=== PATIENT | female | born 2000 | race Caucasian/White ===

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

== ENCOUNTER 2022-02-14 18:58 | Inpatient (IN) ==
[2022-02-14] MEDS ORDERED: OXYTOCIN 30 UNITS/500 ML BAG IV PRN (19:45)
[2022-02-14] MEDS ORDERED: LIDOCAINE 1% LOCAL 20 ML VIAL INFIL PRN (19:45)
[2022-02-14] MEDS: LACTATED RINGER'S 1,000 ML IV PRN ×2 (19:59→23:22)
[2022-02-14 20:11] LABS: Hematocrit (blood only) 31.7 % (34.1-44.9); Mean Corpuscular Hemoglobin 24.1 pg (25.0-34.0); Mean Corpuscular Hgb Conc 31.5 g/dL (32.0-36.0); Mean Corpuscular Volume 76.4 fL (80.0-100.0); Platelet Count 184 K/uL (130-400); RDW Coefficient of Variation 15.7 % (11.5-14.5); RDW Standard Deviation 42.4 fL (36.4-46.3); Red Blood Count 4.15 M/uL (3.93-5.22); White Blood Count 10.08 K/ul (4.8-10.8)
[2022-02-14] MEDS ORDERED: ePHEDrine sulfate 50 MG/ML AMP IV PRN (20:11)
[2022-02-14] MEDS ORDERED: fentaNYL 2MCG/ML ROPIVACAINE 1.25MG/ML 100 ML BAG EPI PRN (20:11)
[2022-02-14] MEDS ORDERED: NALOXONE HCL 0.4 MG/1 ML VIAL/CARP IV PRN (20:11)
[2022-02-14] MEDS ORDERED: NALBUPHINE HCL INJ 10 MG/ML AMP IV PRN (20:11)
[2022-02-14] MEDS ORDERED: NALOXONE HCL 1 MG in SODIUM CHLORIDE 0.9% 1000ML 1,000 ML IV PRN (20:11)
[2022-02-14] MEDS ORDERED: ePHEDrine sulfate 50 MG/ML AMP ONE (20:11)
[2022-02-14] MEDS ORDERED: diphenhydrAMINE 50 MG/ML VIAL IV PRN (20:11)
--- NOTE | 2022-02-14 20:11 | Anesthesiology Consultation ---
Date of Service February 14, 2022 Assessment & Plan (1) Encounter for pre-operative examination: Chart Review Chart Review: Patient NOT seen in Pre Admission Testing and Acceptable Risk for Labor Epidural Consults Requested none History Height/Weight Height: 5 ft 3 in Weight: 70.76 kg Allergies Allergy/AdvReac Type Severity Reaction Status Date / Time No Known Allergies Allergy Verified 12/29/21 18:38 Medications Home Medications Medication Instructions Recorded Confirmed Last Taken prenat.vits,mika,vwh-[id number]-cladj 1 tab PO DAILY 12/29/21 02/14/22 02/07/22 Active Medications Generic Name Dose Route Start Last Admin Trade Name Freq PRN Reason Stop Dose Admin Lactated Ringer's 1,000 mls @ 125 mls/hr 02/14/22 19:45 02/14/22 19:59 Lr IV 02/16/22 19:44 999 mls/hr .Q8H PRN Administration L&D Protocol Protocol Past Medical History Medical History No known health problems No pertinent past medical history Past Family History Family History Mother Hypothyroidism Past Surgical History Surgical History History of placement of ear tubes 18 months Hx of tonsillectomy 9 years old Social History Smoking Status: Former smoker tobacco type: cigarettes Hx Alcohol Use: Yes (prior to knowlede[employer] about ) Alcohol type: beer alcohol intake frequency: 0-2 drinks per day Hx Substance Use: No substance use type: does not use Physical Exam Vital Signs Last Vital Signs Temp 98.1 F 02/14/22 19:20 Pulse 73 02/14/22 19:08 Resp 18 02/14/22 19:20 BP 139/82 02/14/22 19:08
[2022-02-14] MEDS ORDERED: SODIUM CHLORIDE 0.9% INJ 10 ML VIAL ONE (20:12)
[2022-02-14] MEDS ORDERED: fentaNYL citrate 100 MCG/2 ML VIAL ONE (20:12)
[2022-02-14] MEDS ORDERED: LIDOCAINE 2%/EPINEPHRINE 1:200,000 20 ML SDV ONE (20:12)
[2022-02-14] MEDS ORDERED: fentaNYL 2MCG/ML ROPIVACAINE 1.25MG/ML 100 ML BAG EPI ONE (20:12)
[2022-02-14] MEDS ORDERED: BUPIVACAINE 0.25% 30 ML VIAL ONE (20:12)
--- NOTE | 2022-02-14 23:41 | Labor Progress Brief Note ---
Date of Service February 14, 2022 Assessment & Plan (1) : Plan: pt admitted for labor FHr; CAT1 ctx 1-3min VE 3/50/-2 Epidural analgesia in labor AROM- clear Admission and Anticipated Discharge Date Admission Date: February 14, 2022 Results & Data ([facility]) Vital Signs (Past 12 Hours) Vital Signs Temp Pulse Resp BP Pulse Ox 02/14/22 23:36 83 98 02/14/22 23:35 81 137/73 02/14/22 23:31 92 H 98 02/14/22 23:26 93 H 99 02/14/22 23:21 94 H 141/77 H 98 02/14/22 23:16 97 H 98 02/14/22 23:11 72 97 02/14/22 23:06 71 98 02/14/22 23:05 70 137/64 02/14/22 23:01 73 98 02/14/22 22:50 36.6 C 02/14/22 22:56 108 H 98 02/14/22 22:51 91 H 131/89 98 02/14/22 22:46 79 98 02/14/22 22:41 77 100 02/14/22 22:36 77 119/64 98 02/14/22 22:31 71 99 02/14/22 22:26 72 99 02/14/22 22:21 99 02/14/22 22:21 67 02/14/22 22:21 82 117/65 02/14/22 22:16 85 99 02/14/22 22:11 92 H 100 02/14/22 22:07 59 L 138/74 02/14/22 22:06 74 98 02/14/22 22:00 18 02/14/22 22:00 18 02/14/22 22:01 68 99 02/14/22 21:56 69 100 02/14/22 21:51 69 138/82 100 02/14/22 21:46 76 100 02/14/22 21:41 70 98 02/14/22 21:36 77 99 02/14/22 21:30 18 02/14/22 21:30 18 02/14/22 21:31 89 98 02/14/22 21:26 88 98 02/14/22 21:21 69 100 02/14/22 21:16 78 98 02/14/22 21:11 79 98 02/14/22 21:06 93 H 136/91 98 02/14/22 21:00 18 02/14/22 21:00 18 02/14/22 21:01 89 98 02/14/22 20:56 80 99 02/14/22 20:51 83 97 02/14/22 20:46 98 02/14/22 20:46 88 02/14/22 20:46 77 142/81 H 02/14/22 20:43 97 H 141/84 H 02/14/22 20:41 79 137/79 98 02/14/22 20:40 75 18 140/94 02/14/22 20:37 72 138/79 02/14/22 20:36 89 99 02/14/22 20:35 79 133/77 02/14/22 20:33 73 136/77 02/14/22 20:32 95 H 148/89 H 02/14/22 20:31 102 H 100 02/14/22 20:29 18 02/14/22 20:29 91 H 18 142/74 H 02/14/22 20:26 89 99 02/14/22 20:21 102 H 100 02/14/22 20:16 78 100 02/14/22 19:08 73 139/82 02/14/22 19:20 36.7 C 18
[2022-02-15] MEDS: LACTATED RINGER'S 1,000 ML IV PRN (04:56)
[2022-02-15] MEDS ORDERED: ACETAMINOPHEN 325 MG TAB PO PRN (06:07)
[2022-02-15] MEDS ORDERED: DIPHTHERIA/TETANUS/PERTUSSIS 0.5 ML SYR/VIAL IM ONE (06:07)
[2022-02-15] MEDS ORDERED: BENZOCAINE 20% AER SPR 82.5 GM CAN EXT PRN (06:07)
[2022-02-15] MEDS ORDERED: HYDROCORTISONE ACETATE 25 MG SUPP PR PRN (06:07)
[2022-02-15] MEDS ORDERED: bisacodyL 10 MG SUPP PR PRN (06:07)
[2022-02-15] MEDS ORDERED: OXYTOCIN 30 UNITS/500 ML BAG IV PRN (06:07)
[2022-02-15] MEDS ORDERED: miSOPROStoL 200 MCG TAB PR ONE (06:13)
[2022-02-15] MEDS ORDERED: METHYLERGONOVINE MALEATE 0.2 MG/ML AMP IM ONE (06:13)
[2022-02-15] MEDS ORDERED: LACTATED RINGER'S 1,000 ML IV SCH (06:15)
[2022-02-15] MEDS: IBUPROFEN 600 MG TAB PO PRN ×2 (08:06→15:42)
[2022-02-15] MEDS: DOCUSATE SODIUM 100 MG CAP PO SCH ×2 (08:07→20:33)
[2022-02-15] MEDS: PRENATAL VITAMIN 1 TAB PO SCH (08:07)
--- NOTE | 2022-02-15 08:52 | Anesthesia Procedure Note ---
Date of Service February 15, 2022 Anesthesia Post Epidural Note Vital Signs Vital Signs: Temp Pulse Resp BP Pulse Ox 36.8 C 75 20 122/59 L 98 02/15/22 06:00 02/15/22 08:43 02/15/22 08:00 02/15/22 08:43 02/15/22 05:31 Pain Intensity Bilateral Abdomen: Pain Intensity: 2 Notes Mental Status: alert / awake / arousable and participated in evaluation Nausea / Vomiting: adequately controlled Pain: adequately controlled Airway Patency, RR, SpO2: stable & adequate BP & HR: stable & adequate Hydration State: stable & adequate Neuraxial Anesthesia: was administered and sensory block is resolving Anesthetic Complications: no major complications apparent Epidural: Removed without complications and With tip intact
[2022-02-15 09:23] LABS: Albumin Globulin Ratio 1.2 (0.9-2); Albumin Level 2.7 gm/dl (3.4-5.0); BUN Creatinine Ratio 9.7 (10-20); Bilirubin,Total 0.5 mg/dl (0.2-1.0); Calcium 8.8 mg/dl (8.5-10.1); Creatinine Clr Calc Pharmacy 116.6 ml/min; Est GFR (African American) 138.7 ml/min; Est GFR (Non-African American) 119.7 ml/min; Globulin 2.3 gm/dl (2.5-4.0); Potassium 3.8 mmol/L (3.5-5.1)
--- NOTE | 2022-02-15 11:59 | Delivery Summary ---
DELIVERY NOTE: The patient delivered a live infant female in left occiput anterior presentation. Th ere was no nuchal cord. Infant was delivered and placed on mother's abdomen. Delayed cord clamp was performed. Cord blood and cord gases were obtained. Baby's is 8 and 9. Weight is pending. Inspection of the placenta showed a normal looking placenta with 3-vessel cord. Inspection of the pe rineum showed a first-degree laceration, which was repaired with a 3-0 Vicryl. Rectal exam post-repa ir showed good sphincter tone. There were no sutures palpated in the rectum. ESTIMATED BLOOD LOSS: 450 mL. All instruments were removed from the vagina and accounted for x2 incl uding sponges, needles, and retractors. The patient is sent to recovery in stable condition. Job ID: [id number]
[2022-02-16] MEDS: IBUPROFEN 600 MG TAB PO PRN ×2 (00:54→11:27)
[2022-02-16 07:10] LABS: Hematocrit (blood only) 25.2 % (34.1-44.9); Hemoglobin 8.1 g/dl (12.0-16.0); Mean Corpuscular Hemoglobin 24.6 pg (25.0-34.0); Mean Corpuscular Hgb Conc 32.1 g/dL (32.0-36.0); Mean Corpuscular Volume 76.6 fL (80.0-100.0); Mean Platelet Volume 12.1 fL (9.4-12.3); Platelet Count 128 K/uL (130-400); RDW Standard Deviation 43.8 fL (36.4-46.3); Red Blood Count 3.29 M/uL (3.93-5.22); White Blood Count 11.56 K/ul (4.8-10.8)
[2022-02-16] MEDS ORDERED: FERROUS SULFATE 325 MG TAB PO SCH (08:45)
--- NOTE | 2022-02-16 08:59 | Obstetrical Progress Note ---
Date of Service February 16, 2022 Assessment & Plan Admission and Anticipated Discharge Date Admission Date: February 14, 2022 Subjective Patient is seen and examined. She feels well, no complaints. Ambulating without dizziness Voiding without difficulty Tolerating regular diet with out N&V Bleeding is minimal No fever/ chills/ CP/ SOB/ N&V/ Leg pain Bottle feeding without problems Vital Signs Temp Pulse Resp BP 02/16/22 05:20 36.5 C 83 18 112/64 02/16/22 00:30 37.0 C 103 H 18 141/84 H Lab Results 02/14/22 02/14/22 02/15/22 Range/Units 19:50 20:01 08:41 WBC 10.08 (4.8-10.8) K/ul RBC 4.15 (3.93-5.22) M/uL Hgb 10.0 L (12.0-16.0) g/dl Hct 31.7 L (34.1-44.9) % MCV 76.4 L (80.0-100.0) fL MCH 24.1 L (25.0-34.0) pg MCHC 31.5 L (32.0-36.0) g/dL RDW Std Deviation 42.4 (36.4-46.3) fL RDW Coeff of Sal 15.7 H (11.5-14.5) % Plt Count 184 (130-400) K/uL MPV 13.0 H (9.4-12.3) fL Sodium 135 L (136-145) mmol/L Potassium 3.8 (3.5-5.1) mmol/L Chloride 106 (98-107) mmol/L Carbon Dioxide 23 (21-32) mmol/L Anion Gap 6 (3-11) BUN 7 (6-23) mg/dl Creatinine 0.72 (0.6-1.2) mg/dl Est Cr Clr Drug Dosing 116.6 ml/min Est GFR ( Amer) 138.7 ml/min Est GFR (Non-Af Amer) 119.7 ml/min BUN/Creatinine Ratio 9.7 L (10-20) Glucose 88 (70-99(Fasting)) mg/dl Calcium 8.8 (8.5-10.1) mg/dl Total Bilirubin 0.5 (0.2-1.0) mg/dl AST 19 (13-39) U/L ALT 8 (7-52) U/L Alkaline Phosphatase 129 H (34-104) U/L Total Protein 5.0 L (6.0-8.3) gm/dl Albumin 2.7 L (3.4-5.0) gm/dl Globulin 2.3 L (2.5-4.0) gm/dl Albumin/Globulin Ratio 1.2 (0.9-2) SARS-CoV-2, RNA, NAAT NEGATIVE (NEGATIVE) 02/16/22 Range/Units 06:55 WBC 11.56 H (4.8-10.8) K/ul RBC 3.29 L (3.93-5.22) M/uL Hgb 8.1 L (12.0-16.0) g/dl Hct 25.2 L (34.1-44.9) % MCV 76.6 L (80.0-100.0) fL MCH 24.6 L (25.0-34.0) pg MCHC 32.1 (32.0-36.0) g/dL RDW Std Deviation 43.8 (36.4-46.3) fL RDW Coeff of Sal 16.0 H (11.5-14.5) % Plt Count 128 L (130-400) K/uL MPV 12.1 (9.4-12.3) fL Sodium (136-145) mmol/L Potassium (3.5-5.1) mmol/L Chloride (98-107) mmol/L Carbon Dioxide (21-32) mmol/L Anion Gap (3-11) BUN (6-23) mg/dl Creatinine (0.6-1.2) mg/dl Est Cr Clr Drug Dosing ml/min Est GFR ( Amer) ml/min Est GFR (Non-Af Amer) ml/min BUN/Creatinine Ratio (10-20) Glucose (70-99(Fasting)) mg/dl Calcium (8.5-10.1) mg/dl Total Bilirubin (0.2-1.0) mg/dl AST (13-39) U/L ALT (7-52) U/L Alkaline Phosphatase (34-104) U/L Total Protein (6.0-8.3) gm/dl Albumin (3.4-5.0) gm/dl Globulin (2.5-4.0) gm/dl Albumin/Globulin Ratio (0.9-2) SARS-CoV-2, RNA, NAAT (NEGATIVE) PE: General: Alert, orientedx3, NAD Abd: soft, NT, fundus firm, below Umbilicus Perineum intact, Lochia rubra minimal Ext; NT, no edema AP: 21 yo s/p , ppd# 1 VSS Afebrile doing well Continue routine care Desires d/c today All questions were answered Discussed iron intake, contraception and when to call D/C home , f/u in office Results & Data ([facility]) Vital Signs (Past 12 Hours) Vital Signs Temp Pulse Resp BP 02/16/22 05:20 36.5 C 83 18 112/64 02/16/22 00:30 37.0 C 103 H 18 141/84 H
[2022-02-16] MEDS: DOCUSATE SODIUM 100 MG CAP PO SCH (09:18)
[2022-02-16] MEDS: PRENATAL VITAMIN 1 TAB PO SCH (09:18)
[2022-02-16] MEDS ORDERED: bisacodyL 5 MG TABEC PO SCH (20:00)
== END 2022-02-16 14:55 | disposition home or self-care (01) | DRG 807 ==
LOC: OPB 18:58 → 4S1 19:01 → 4E2 02-15 09:13

== ENCOUNTER 2023-03-08 04:42 | Inpatient (IN) ==
[2023-03-08] MEDS ORDERED: HYDROCORTISONE ACETATE 25 MG SUPP PR PRN (05:07)
[2023-03-08] MEDS ORDERED: ACETAMINOPHEN 325 MG TAB PO PRN (05:07)
[2023-03-08] MEDS ORDERED: oxyCODONE/ACETAMINOPHEN 5mg/325mg TAB PO PRN (05:07)
[2023-03-08] MEDS ORDERED: OXYTOCIN 30 UNITS/500 ML BAG IV PRN (05:07)
[2023-03-08] MEDS ORDERED: BENZOCAINE 20% SPRY 85 APPLN/85 GM CAN EXT PRN (05:07)
[2023-03-08] MEDS ORDERED: MEASLES, MUMPS & RUBELLA VIRUS VACCINE (MMR) VIAL SQ ONE (05:07)
[2023-03-08] MEDS ORDERED: IBUPROFEN 600 MG TAB PO PRN (05:07)
[2023-03-08] MEDS ORDERED: DIPHTHERIA/TETANUS/PERTUSSIS Vaccine (Tdap, Age 7+yrs) 0.5mL SYR/VL IM ONE (05:07)
--- NOTE | 2023-03-08 05:18 | History & Physical Report ---
Date of Service March 08, 2023 Assessment & Plan (1) Precipitous delivery: Plan: Patient is a 22-year-old 89, precipitous labor and delivery on the way here in the ambulance at 4:05 AM. Patient had no care unknown gestational age. Per pediatrics infant is younger than 25 weeks. Vital signs stable afebrile, Placenta is delivered without complications, bleeding is minimal, Plan to admit her, labs, monitor, will be transferred to [facility] Per pediatrics, (2) labor with delivery: (3) Placental disorder, delivered: Admission and Anticipated Discharge Date Admission Date: March 08, 2023 History of Present Illness Chief Complaint: Brought by ambulance Primary Care Provider: NO PCP Patient is a 22-year-old 89 who was brought by ambulance this morning and delivered a infant on the way here at 4:05 AM. Per patient she did not know she was until last week and she was planning to make an appointment for later. She woke up with severe cramps, pain and bleeding when she called the ambulance. She thought she was miscarrying. She then delivered quickly on in the ambulance and placenta was still in when she brought to here to labor and delivery. She has not had any care during this . She is known to me from last year when she delivered a full-term viable female infant. She denies any medical problems, she denies taking any medications. She states she was having irregular periods since delivery of her last child which was on February 2022. She was not using any contraception. Allergies Allergy/AdvReac Type Severity Reaction Status Date / Time No Known Allergies Allergy Verified 03/08/23 04:58 Home Medications Medication Instructions Recorded Confirmed Type No Known Home Medications 06/29/22 03/08/23 History Patient History Medical History COVID 12/28 Encounter for pre-operative examination No known health problems No pertinent past medical history Surgical History History of placement of ear tubes 18 months Hx of tonsillectomy 9 years old Family History Mother Hypothyroidism Social History Smoking Status: Former smoker Age Quit Using Tobacco: 21 (Few months ago ); Second Hand Exposure: No; Do You Dip or Chew Tobacco: No; Hx Alcohol Use: Yes (Stopped using when she was 12 weeks per patient report. ) Alcohol type: beer Hx Substance Use: No Preferred Language: Spanish Communication Ability: Effective [employer] Required: No Beliefs That Will Affect Care: None marital status: Single Current Living Situation: Other Current Living Situation Comment: Sister and 2 friends. current occupational status: employed current occupation: [employer] Feels Safe at Home: Yes Diet: regular Do you think of yourself as: straight/heterosexual Gender Identity: Female Assistive Devices: None OB History Full-term February 2022 Review of Systems as per Subjective / HPI Physical Exam Constitutional: WD/WN, vitals as above well developed, well nourished and + acute distress Gastrointestinal (Abdomen): normal bowel sounds, soft, nontender, no hepatosplenomegaly Genitourinary: normal external appearance (Cord with clamp visible at introitus) Placenta was in the vagina, delivered spontaneously as intact and complete. The vagina and perineum were checked and found to be intact with no lacerations. Uterus was explored and found to be empty except small clots in lower segment those were removed, fundus was firm and EBL was 100 mL. Patient has an IV and IV fluids with oxytocin is running as bolus. Results & Data Vital Signs (Past 12 Hours) Vital Signs Pulse BP 03/08/23 05:03 71 127/60 03/08/23 04:56 86 136/62
[2023-03-08 06:09] LABS: Basophils # (auto) 0.05 K/uL (0.00-0.20); Basophils % (auto) 0.3 %; Eosinophils # (auto) 0.02 K/uL (0.00-0.50); Eosinophils % (auto) 0.1 %; Hematocrit (blood only) 31.8 % (37.0-47.0); Hemoglobin 10.3 g/dl (12.0-16.0); Immature Granulocytes # (auto) 0.11 K/uL (0.01-0.20); Immature Granulocytes % (auto) 0.6 %; Lymphocytes # (auto) 1.13 K/uL (1.20-3.40); Lymphocytes % (auto) 5.9 %; Mean Corpuscular Hemoglobin 25.6 pg (25.0-34.0); Mean Corpuscular Hgb Conc 32.4 g/dL (32.0-36.0); Mean Corpuscular Volume 79.1 fL (80.0-100.0); Mean Platelet Volume 10.9 fL (9.4-12.4); Monocytes # (auto) 0.74 K/uL (0.11-0.59); Monocytes % (auto) 3.9 %; Neutrophils # (auto) 17.02 K/uL (1.40-6.50); Neutrophils % (auto) 89.2 %; Platelet Count 230 K/uL (130-400); RDW Coefficient of Variation 14.3 % (11.5-14.5); RDW Standard Deviation 41.3 fL (36.4-46.3); Red Blood Count 4.02 M/uL (4.20-5.40); White Blood Count 19.07 K/ul (4.8-10.8)
[2023-03-08 06:26] LABS: Alanine Aminotransferase 13 U/L (7-52); Albumin Globulin Ratio 1.3 (0.9-2); Albumin Level 3.6 gm/dl (3.4-5.0); Alkaline Phosphatase 79 U/L (34-104); Anion Gap 8 (3-11); Aspartate Aminotransferase 16 U/L (13-39); BUN Creatinine Ratio 8.5 (10-20); Bilirubin,Total 0.4 mg/dl (0.2-1.0); Blood Urea Nitrogen 4 mg/dl (6-23); Calcium 8.5 mg/dl (8.6-10.3); Carbon Dioxide 22 mmol/L (21-32); Chloride 106 mmol/L (98-107); Creatinine Clr Calc Pharmacy 162.1 ml/min; Est GFR (African American) > 150.0 ml/min; Est GFR (Non-African American) 140.2 ml/min; Globulin 2.8 gm/dl (2.5-4.0); Glucose 101 mg/dl (70-99(Fasting)); Potassium 3.6 mmol/L (3.5-5.1); Sodium 136 mmol/L (136-145); Total Protein 6.4 gm/dl (6.0-8.3)
[2023-03-08] MEDS ORDERED: DOCUSATE SODIUM 100 MG CAP PO SCH (08:00)
[2023-03-08] MEDS ORDERED: FERROUS SULFATE 325 MG TAB PO SCH (08:00)
[2023-03-08] MEDS ORDERED: PRENATAL VITAMIN 1 TAB PO SCH (08:00)
[2023-03-08 09:35] LABS: Amphetamines+Metham, Urine Neg (Neg); Barbiturates, Urine Neg (Neg); Benzodiazepine, Urine Neg (Neg); Cocaine, Urine Neg (Neg); MDMA (Ecstacy), Urine Neg (Neg); Methadone, Urine Neg (Neg); Opiate, Urine Neg (Neg); Phencyclidine, Urine Neg (Neg)
--- NOTE | 2023-03-08 10:32 | Obstetrical Progress Note ---
Date of Service March 08, 2023 Assessment & Plan (1) Placental disorder, delivered: Pt stable infant transferred to [facility] pt wishes to be discharged Results & Data Vital Signs (Past 12 Hours) Vital Signs Temp Pulse Resp BP 03/08/23 10:15 37.2 C 18 03/08/23 06:34 18 03/08/23 06:04 18 03/08/23 05:49 18 03/08/23 05:34 18 03/08/23 05:18 18 03/08/23 07:03 79 115/61 03/08/23 06:49 93 H 121/62 03/08/23 06:34 96 H 124/80 03/08/23 06:19 74 113/55 L 03/08/23 06:04 96 H 108/53 L 03/08/23 05:49 90 127/60 03/08/23 05:34 107 H 118/65 03/08/23 05:18 97 H 121/69 03/08/23 05:03 71 127/60 03/08/23 04:56 86 136/62 03/08/23 05:04 37.2 C 18
[2023-03-09] MEDS ORDERED: bisacodyL 5 MG TABEC PO SCH (20:00)
[2023-03-10] MEDS ORDERED: bisacodyL 10 MG SUPP PR PRN
--- NOTE | 2023-03-11 00:31 | Procedure Note ---
Procedure Note Date of Service March 11, 2023 Note Procedure note: Patient is a 22-year-old 89 who was brought by ambulance this morning and delivered a on the way here at 4:05 AM. Per patient she did not know she was until last week and she was planning to make an appointment for later. She woke up with severe cramps, pain and bleeding when she called the ambulance. She thought she was miscarrying. She then delivered quickly on in the ambulance and placenta was still in when she brought to here to labor and delivery. Physical / Pelvic exam: Normal external appearance (Cord with clamp visible at introitus) Placenta was in the vagina, delivered spontaneously as intact and complete. The vagina and perineum were checked and found to be intact with no lacerations. Uterus was explored and found to be empty except small clots in lower segment those were removed, fundus was firm and EBL was 100 mL. Patient has an IV and IV fluids with oxytocin is running as bolus. Patient is stable and will be admitted for care. is being transferred to [facility] by pediatric team. Coding
== END 2023-03-08 10:35 | disposition home or self-care (01) | DRG 776 ==
LOC: 4S1 04:42